=== PATIENT | male | born 1995 | race African-American/Black ===

== ENCOUNTER 2017-01-30 09:08 | Emergency (ER) | payer OTHER ==
[~2017-01-30] VITALS: Ht 167.6 cm; Wt 108.9 kg
== END 2017-01-30 10:55 | disposition home or self-care (01) ==
LOC: ED 09:08
DX: S60.453A Superficial foreign body of left middle finger, initial encounter (principal); X58.XXXA Exposure to other specified factors, initial encounter; Y93.89 Activity, other specified; Y92.89 Other specified places as the place of occurrence of the external cause; Y99.8 Other external cause status
CPT/HCPCS: 96372; 99283; J0696; J7040